=== PATIENT | female | born 1995 | race Caucasian/White ===

== ENCOUNTER 2018-08-29 16:24 | Emergency (ER) | payer SELFPAY ==
[2018-08-29] MEDS ORDERED: Penicillin V Potassium 500 MG Tab PO ONE (17:30)
[2018-08-29] MEDS ORDERED: Naproxen 500 MG Tab PO STA (17:30)
--- NOTE | 2018-08-29 17:37 | EDM.PDOC ---
ED HPI GENERAL MEDICAL PROBLEM - General Chief Complaint: ENT Problem Stated Complaint: TOOTH PAIN Time Seen by Provider: 08/29/18 16:38 Source of Information: Reports: Patient, RN Notes Reviewed History Limitations: Reports: No Limitations - History of Present Illness INITIAL COMMENTS - FREE TEXT/NARRATIVE: The patient states that she developed a lower right toothache this past weekend. She is not sure if she might have fractured the tooth. No recent fever. No recent oral drainage. The patient states that she has been treating her dentalgia with Orajel and ibuprofen, but her last dose was last night. The patient has not seen a dentist. The patient does not have a PCP. Right Tooth/Teeth Pain Score (Numeric/FACES): 10 - Related Data Allergies Allergy/AdvReac Type Severity Reaction Status Date / Time No Known Allergies Allergy Verified 08/29/18 16:31 Home Meds: Home Meds Naproxen 500 mg PO Q12H PRN #20 tablet 08/29/18 [Rx] Penicillin V Potassium 500 mg PO Q6HR #40 tab 08/29/18 [Rx] Past Medical History - Past Health History Medical/Surgical History: Denies Medical/Surgical History Social & Family History - Family History Family Medical History: Noncontributory - Tobacco Use Smoking Status *Q: Current Every Day Smoker Years of Tobacco use: 5 Packs/Tins Daily: 0.5 Packs/Tins Daily Comment: Down from 1 ppd - Caffeine Use Caffeine Use: Reports: Coffee - Alcohol Use Alcohol Use History: Yes Alcohol Use Frequency: Socially - Recreational Drug Use Recreational Drug Use: Yes Drug Use in Last 12 Months: Yes Recreational Drug Type: Reports: Marijuana/Hashish (last smoked Jul 2018) - Living Situation & Occupation Living situation: Reports: Single, Alone Occupation: Employed ([employer]) ED ROS ENT - Review of Systems Review Of Systems: ROS reveals no pertinent complaints other than HPI. ED EXAM, ENT - Physical Exam Exam: See Below Exam Limited By: No Limitations General Appearance: Alert, WD/WN, No Apparent Distress Eye Exam: Bilateral Eye: EOMI, Normal Inspection Ears: Normal External Exam, Normal Canal, Hearing Grossly Normal, Normal TMs Nose: Normal Inspection, Normal Mucousa, No Blood Mouth/Throat: Normal Inspection, Normal Lips, Normal Oropharynx, Other (Tooth # 1 absent. Tooth #3 with filling. Tooth #14 with filling. Teeth #15, 16 absent. Teeth #17, 18 absent. Tooth #19 with filling. Tooth #30 (the tooth of concern) deeply carious of the posterior portion, to the gingiva. Mild local gingival swelling, but no pointing seen. Teeth #31, 32 absent.) Head: Atraumatic, Normocephalic Neck: Normal Inspection, Supple, Non-Tender, Full Range of Motion. No: Lymphadenopathy (L), Lymphadenopathy (R) Course - Vital Signs Last Recorded V/S: Last Vital Signs Temp 36.1 C 08/29/18 16:31 Pulse 88 08/29/18 16:31 Resp 16 08/29/18 16:31 BP 145/90 H 08/29/18 16:31 Pulse Ox 98 08/29/18 16:31 - Orders/Labs/Meds Meds: Medications Discontinued Medications Generic Name Dose Route Start Last Admin Trade Name Freq PRN Reason Stop Dose Admin Naproxen 500 mg 08/29/18 17:30 08/29/18 17:37 Naprosyn PO 08/29/18 17:31 500 mg ONETIME STA Administration Penicillin V Potassium 500 mg 08/29/18 17:30 08/29/18 17:37 Veetids PO 08/29/18 17:31 500 mg ONETIME ONE Administration - Re-Assessments/Exams Free Text/Narrative Re-Assessment/Exam: 08/29/18 17:31 The patient appears to have severe decay of tooth #30 and may have an associated infection. She will be started on oral penicillin and oral naproxen here in the ED, and I will send in prescriptions for 10 days of the same. The patient will be discharged home with a list of local dentists, and I will also suggest to her that she try [id number] Dentemp. Departure - Departure Time of Disposition: 17:31 Disposition: Home, Self-Care 01 Condition: Fair Clinical Impression: Dental decay, Dental infection - Discharge Information *PRESCRIPTION DRUG MONITORING PROGRAM REVIEWED*: Not Applicable *COPY OF PRESCRIPTION DRUG MONITORING REPORT IN PATIENT SHAE: Not Applicable Prescriptions: Penicillin V Potassium 500 mg PO Q6HR #40 tab Naproxen 500 mg PO Q12H PRN #20 tablet PRN Reason: Pain Instructions: Dental Abscess, [id number] Referrals: PCP,None [Primary Care Provider] - Forms: ED Department Discharge Additional Instructions: You were seen in the emergency room for a lower right toothache. On examination, your #30 is severely decayed, with a possible local infection. You have been started on the antibiotic penicillin and the pain reliever naproxen. Prescriptions for penicillin and naproxen has been sent to the [facility], [address] [place] [address]. Take one tablet of penicillin every 6 hours, as prescribed. Finish the entire prescription unless told otherwise by a dentist. Take one tablet of naproxen every 12 hours, with food, as prescribed. Consider filling the hole in your tooth with over the counter Dentemp, until you can get in to see a dentist. A list of local dentists has been provided to you. If any other problems, please do not hesitate to return to the ER.
== END 2018-08-29 17:51 | disposition home or self-care (01) ==
LOC: JD.ED 16:24
DX: K04.7 Periapical abscess without sinus (principal); F17.210 Nicotine dependence, cigarettes, uncomplicated
CPT/HCPCS: 99282; A9270